=== PATIENT | male | born 1950 | race Caucasian/White ===

== ENCOUNTER → 2019-03-14 | Outpatient (CLI) | payer OTHER ==
[~2019-03-14] MED LIST: ADULT ASPIRIN R81 MG PO; AMARYL4 MG PO; GLUCOSAMINE CH1 EAC2 PO; HYDROCHLOROTHIA25 M2 PO; METFORMIN HCL500 M3 PO; OMEPRAZOLE 20 M20 M1 PO; ZOCOR 10 MG TAB10 MG PO
== END | disposition home or self-care (01) ==
LOC: SJCVCIMAG 13:09 → SJCVC 13:09
DX: I25.10 Atherosclerotic heart disease of native coronary artery without angina pectoris (principal); R94.31 Abnormal electrocardiogram [ECG] [EKG]; E78.5 Hyperlipidemia, unspecified; E11.9 Type 2 diabetes mellitus without complications; I10 Essential (primary) hypertension; G47.30 Sleep apnea, unspecified; J44.9 Chronic obstructive pulmonary disease, unspecified; Z87.891 Personal history of nicotine dependence; Z79.82 Long term (current) use of aspirin

== ENCOUNTER → 2019-03-16 | Outpatient (CLI) | payer OTHER ==
[~2019-03-16] VITALS: Ht 177.8 cm; Wt 111.1 kg
--- NOTE | ~2019-03-16 | EKG ---
[facility] [place] [address] [place] [address] ELECTROCARDIOGRAM REPORT Name: JACKY SEE Room #: REG [facility].#: [id number] Admission: 03/16/19 Attend Phys: Kennedy Anderson Discharge: Date of : 50 Report #: [id number] THIS REPORT FOR: cc: Ophelia West MD, Paula V. MD Epiphany, Epiphany MD ~ THIS REPORT FOR: //name// [facility] Test Date: 2019-03-16 Test Time: 11:08:26 Pat Name: JACKY SEE Department: Room: Gender: Community Health Worker: Parmjit MERCHANT : 1950 Requested By: Kennedy Anderson Order Number: [id number] MD: Measurements Intervals [place] Rate: 75 P: -2 FL: 165 QRS: 18 QRSD: 82 T: 39 QT: 377 QTc: 421 Interpretive Statements Sinus rhythm Atrial premature complex Compared to ECG 11/03/1998 21:15:00 Atrial premature complex(es) now present [email or web address] By: [id number] Epiphany Epiphany, /EPI
[2019-03-16 11:01] VITALS: BP 160/80
[2019-03-16 11:07] LABS: HEMATOCRIT 42.8 % (42.0-52.0); HEMOGLOBIN 14.6 gm/dL (14.0-18.0); MCH 33.8 pg (26.0-34.0); MCV 99.4 fL (80.0-100.0); RBC 4.31 mil/uL (4.50-6.00); RDW 12.9 % (10.5-14.5); WBC 6.4 thou/uL (4.0-11.0)
[2019-03-16 11:35] LABS: CALCIUM 8.7 mg/dL (8.5-10.1); CREATININE 1.3 mg/dL (0.7-1.3); POTASSIUM 4.1 mmol/L (3.5-5.1)
--- NOTE | 2019-03-16 14:04 | NUR ---
1 hour post bedrest completed. Sat head of bed up so pt can eat. Family at bedside. No c/o voiced.
--- NOTE | 2019-03-16 14:42 | NUR ---
Pt ambulated in hallway. Right groin remains stable. IV discontinued. Dr. Anderson to see pt before he is discharged.
--- NOTE | 2019-03-17 12:57 | CATHLAB ---
[facility] [place] [address] [place] [address] INVASIVE PROCEDURE REPORT Name: JACKY SEE Room #: REG MARIKA ThorntonRenae#: [id number] Admission: 03/16/19 Attend Phys: Kennedy Anderson Discharge: Date of : 50 Report #: [id number] THIS REPORT FOR: cc: Ophelia West MD, Paula V. MD Lammoglia, Francisco J. MD ~ APPROVED REPORT Study performed: 03/16/2019 11:55:13 Patient Details Patient Status: Out-Patient Room #: The patient is a 68 year-old male Event Personnel Kennedy Anderson Recruiting Intern, Eliza Boothe RN, Fidelia Masters Monitor, Orlin Coppola Scrub Procedures Performed Art Access - R femoral artery* Left Heart Cath w/or w/o Coronaries [id number] [facility] [address] Initial Mod Sed Same Phys/QHP Gr5y 720620 Hemostasis with Manual pressure Indication Chest pain, Elevated coronary calcium at 1096 Risk Factors Family History, Hypercholesterolemia, Hypertension, Diabetes Procedure Narrative The patient was brought electively to the Cardiac Catheterization Laboratory and was prepped and draped in a sterile manner. The Right Groin^ was infiltrated with subcutaneous anesthesia. A PINNACLE 4FR Sheath #[id number] sheath was inserted into the RFA^. Coronary angiography was performed using coronary diagnostic catheters. The right coronary system was accessed and visualized with a JR 4 catheter. The left coronary system was accessed and visualized with a JL 4 catheter. The left ventricle was accessed and visualized with a Pigtail catheter. Left ventricular/Aortic Valve gradient assessed via catheter pullback. Hemostasis was obtained with manual pressure following sheath removal without any complications. The patient tolerated the procedure well and there were no complications associated with the procedure. There was no hematoma. [facility] [address] [place] [address] INVASIVE PROCEDURE REPORT Name: JACKY SEE Room #: REG [facility]#: [id number] Admission: 03/16/19 Attend Phys: Kennedy Romero Discharge: Date of : 50 Report #: [id number] Intraoperative Conscious Sedation Sedation start time: 12:23 Case end Time: 12:50 Versed 3 mg Fluoro Time: 1.43 minutes Dose: DAP 3836.00 cGycm2 484 mGy Contrast Type and Amount: Omnipaque 55 ml Coronary Angiography The patient's coronary anatomy is right dominant. Diagnostic Cath Left Main Normal origin and caliber bifurcates left anterior descending left circumflex it is free of high-grade lesions LAD Moderate caliber type II vessel which has a mild luminal irregularities throughout its rostral mid and distal course. The distal third it tapers to a small sized vessel bifurcating at the apex and terminating. No high-grade lesions are identified Diagonal 1 Small insignificant caliber vessel which has a moderate narrowing in its proximal portion then reconstitutes coursing a short distance along the anterolateral wall Circumflex Moderate caliber nondominant vessel which courses giving rise to 2 small caliber lateral wall marginal branches. There are luminal irregularities present but no high-grade lesions. Right Coronary Moderate caliber vessel of normal origin coursing the AV groove giving rise to RV marginal branch. Prior to that origin of the small insignificant caliber RV marginal branch is an eccentric lesion which is calcified but no greater than 50-60% in the anterior view. In TORRES and BREANNE view it appears not to be significant although somewhat foreshortened. The vessel continues on to the crux of the heart will race small to moderate caliber posterior descending artery originates which courses towards the apex with only luminal irregularities present. The RCA then terminates as a posterior lateral wall branches is of moderate caliber and no high-grade lesions R PDA Small to moderate caliber vessel coursing in the posterior interventricular sulcus free of high-grade disease Left Ventriculography Left Ventriculography was not performed. Hemodynamics The aortic pressure is 153/73 mmHg with a mean of 99 mmHg. The left ventricular pressure is 157/10 mmHg with a mean of mmHg. The left [facility] [address] [place] [address] INVASIVE PROCEDURE REPORT Name: JACKY SEE RAMIREZ Room #: REG CL Natalee#: [id number] Admission: 03/16/19 Attend Phys: Kennedy Romero Discharge: Date of : 50 Report #: [id number] ventricular end diastolic pressure is 25 mmHg. Conclusion 1. Coronary disease mild, single vessel 2. Normal hemodynamics Recommendations Cardiac Risk Reduction Program Medical Therapy <ELECTRONICALLY SIGNED> By: Kennedy Anderson MD 03/17/19 1256 [id number] 1256 Kennedy Anderson MD /INF
== END | disposition home or self-care (01) ==
LOC: CATH 10:31
PROVIDERS: Internal Medicine
DX: R07.9 Chest pain, unspecified (principal); I25.10 Atherosclerotic heart disease of native coronary artery without angina pectoris; I10 Essential (primary) hypertension; E11.9 Type 2 diabetes mellitus without complications; E78.00 Pure hypercholesterolemia, unspecified; J43.9 Emphysema, unspecified; K21.9 Gastro-esophageal reflux disease without esophagitis; E66.09 Other obesity due to excess calories; Z98.890 Other specified postprocedural states; Z82.49 Family history of ischemic heart disease and other diseases of the circulatory system; Z79.899 Other long term (current) drug therapy; Z87.891 Personal history of nicotine dependence; Z79.82 Long term (current) use of aspirin